=== PATIENT | male | born 2000 | race Caucasian/White ===

== ENCOUNTER 2021-02-20 00:07 | Emergency (ER) | payer SELFPAY ==
[2021-02-20 00:12] VITALS: BP 140/85; PULSE 63; RESP 17; TEMP 36.7; O2SAT 99; BMI 21.2
--- NOTE | 2021-02-20 00:21 | ED_ITS ---
HPI - Dental/Oral General: Chief complaint: Dental/Oral Stated complaint: oral pain Time Seen by Provider: 02/20/21 00:09 Source: patient Mode of arrival: ambulatory Limitations: no limitations History of Present Illness: HPI Narrative: 20-year-old male states been having dental pain for months. He had teeth pulled on the left side states he is having right lower molar pain currently and is not scheduled to get back to the dentist until early March. He states pain was severe tonight rated an 8 out of 10. Denies any difficulty swallowing denies any trismus. Has had no fever. Denies any worsening improving factors. Associated symptoms: Denies fever(s) Review of Systems Const: Denies: fever(s), chills, body aches or change in appetite Eyes: Denies: blurry vision or eye discomfort ENMT: Reports: dental pain; Denies: throat pain Card: Denies: chest pain Resp: Denies: dyspnea GI: Denies: abdominal pain, nausea, vomiting or diarrhea : Denies: dysuria Musc: Denies: neck pain or back pain Skin/Breast: Denies: rash Neuro: Denies: headache(s) Psych: Denies: depression Kenny/Lymph: Denies: easy bruising All/Imm: Denies: urticaria Physical Exam Const: COMMON NORMALS: no acute distress and patient oriented x3 HENMT: COMMON NORMALS: normocephalic and atraumatic HEAD & SCALP: normocephalic and atraumatic OTHER: Poor dentition with multiple dental caries. Tenderness over right lower molars with inflammation to the gingiva. No abscess noted no trismus. Eye: COMMON NORMALS: EOMs intact bilaterally Neck/C-Spine: COMMON NORMALS: full ROM and supple Chest: COMMONS NORMALS: normal inspection of the chest Resp: COMMON NORMALS: normal respiratory effort Cardio: COMMON NORMALS: regular rate RATE: regular rate Extremity: COMMON NORMALS: normal to inspection Neuro: COMMON NORMALS: patient oriented x3 Psych: COMMON NORMALS: mental status grossly normal, Normal thought process present and cooperative THOUGHT PROCESS: Normal thought process present Skin: COMMON NORMALS: no rashes or lesions noted GENERAL SKIN EXAM: no rashes or lesions noted Course Vital Signs: Vital signs: Vital Signs Temperature 98.0 F 02/20/21 00:12 Pulse Rate 63 02/20/21 00:12 Respiratory Rate 17 02/20/21 00:12 Blood Pressure 140/85 02/20/21 00:12 Pulse Oximetry 99 02/20/21 00:12 MDM - Dental/Oral MDM Narrative: Medical decision making narrative: Patient presents with dental pain with dental caries. He has inflammation to the right lower gumline with no abscess or trismus. We will place him on pain meds and antibiotics. He is to follow-up with dentist as scheduled in March. He is return if worsening. Discharge Plan Discharge Patient Disposition: Home Clinical Impression: Toothache, Dental caries Condition: Stable Prescriptions: New hydrocodone-acetaminophen 5-325 mg tablet 1 tab PO Q6H PRN (Reason: pain) Qty: 14 RF: 0 Naprosyn 500 mg tablet 500 mg PO BID PRN (Reason: pain) Qty: 20 RF: 0 penicillin V potassium 500 mg tablet 500 mg PO Q6H 10 Days Qty: 40 RF: 0 Discharge Orders: Discharge ED (Routine); Ordered 02/20/21 Ordered By: Letty Dixon Referrals: Berna Bellamy MD [Primary Care Provider] - Discharge Diet: Advance as tolerated Discharge Activity: Resume usual activity Patient Instructions: Dental Caries (ED), Toothache (ED), Opioid Safety Coding Level of Care Code ED Pin T[employer] Machine Operator for Benny Navarro
[2021-02-20] MEDS: HYDROcodone-acetaminophen 7.5-325 mg Tablet 1 TAB PO (00:38)
[2021-02-20 00:39] VITALS: RESP 18
== END 2021-02-20 00:40 | disposition home or self-care (01) ==
PROVIDERS: Emergency Provider Emergency Medicine; PCP Family Medicine
DX: K02.9 Dental caries, unspecified (principal)
CPT/HCPCS: 99282